=== PATIENT | male | born 1945 | race Caucasian/White ===

== ENCOUNTER 2018-10-06 08:42 | Day surgery (SDC) | payer BC ==
[~2018-10-06] VITALS: Ht 172.7 cm; Wt 72.0 kg
[2018-10-06] VITALS (15 sets, daily range): BP systolic 122–158; BP diastolic 60–79; PULSE 64–95; RESP 15–23; Ht 172.7 cm; Wt 72.0 kg
[~2018-10-06 08:42] MED LIST: CEFAZOLIN 2 GM/50 ML (PMX) 50 ML (FOR WT < 120 KG) IVPB ONE; LACTATED RINGER'S 1,000 ML IV SCH; SOD CHLORIDE 0.9% 1,000 ML IV SCH; metroNIDAZOLE 500 MG/NS (PMX) 100 ML IVPB ONE
[2018-10-06] MEDS ORDERED: FINA5TAB4 PO (09:06)
[2018-10-06] MEDS ORDERED: ALPR1TAB2 PO (09:06)
[2018-10-06] MEDS ORDERED: AMLO5TAB4 PO (09:06)
[2018-10-06] MEDS ORDERED: OXYC-279 PO (09:06)
[2018-10-06] MEDS ORDERED: TAMS-14 PO (09:09)
[2018-10-06] MEDS ORDERED: LIDOCAINE 1% (MPF) 30 ML INJ ONE (10:17)
--- NOTE | 2018-10-06 10:57 | PREAC ---
Date/Time of Note Date/Time of Note DATE: 10/06/18 TIME: 10:56 Anesthesia Eval and Record Evaluation Time Pre-Procedure Interview DATE: 10/06/18 TIME: 10:56 Age 72 Sex male NPO: 8 hrs Preoperative diagnosis anal mass Planned procedure proctoscopy with biopsy Past Medical History Past Medical History: Includes Cardio: HTN Surgery & Anesthesia Issues No known issue Meds Anticoagulation: No Beta Milvia within 24 hr: No Reason Beta Milvia not given: Pt. not on B-Milvia Reported Medications Tamsulosin Hcl* (Flomax*) 0.4 Mg Cap.er.24h, 0.4 MG PO DAILY, CAP 10/06/18 Alprazolam* (Xanax*) 1 Mg Tab, 1 MG PO HS PRN for ANXIETY, TAB 10/06/18 Oxycodone HCl/Acetaminophen (Percocet 5-325 mg Tablet) 1 Each Tablet, 1 TAB PO Q6 PRN for PAIN LEVEL 7-10, TAB 10/06/18 Amlodipine Besylate* (Norvasc*) 5 Mg Tablet, 5 MG PO DAILY, TAB 10/06/18 Discontinued Reported Medications Finasteride* (Finasteride*) 5 Mg Tablet, 5 MG PO DAILY, TAB 10/06/18 Current Medications Lactated Ringer's 1,000 ml @ 25 mls/hr Q24H IV ; Start 10/06/18 at 08:00 Sodium Chloride 1,000 ml @ 25 mls/hr Q24H IV ; Start 10/06/18 at 08:00 Meds reviewed: Yes Allergies Coded Allergies: No Known Drug Allergies (Unverified Allergy, Unknown, 10/05/18) Allergies Reviewed: Yes Labs/Studies Labs Reviewed: Reviewed by anesthesiologist test: N/A Pre-procedure Exam Last vitals Vital Signs Date Temp Pulse Resp B/P (MAP) Pulse Ox O2 O2 Flow FiO2 Time Delivery Rate 10/06/18 97.8 68 18 144/70 96 Room Air 09:49 (94) Airway: Adequate mouth opening, Adequate thyromental dist Mallampati: Mallampati I Teeth: Abnormal (none ) Lung: Normal Heart: Normal ASA Physical Status ASA physical status: 2 Emergency: None Pre-operative Attestations Prior to commencing anesthesia and surgery, the patient was re-evaluated, there was verification of: *The patient's identity *The results of appropriate recent lab work and preoperative vital signs *The above evaluation not changing prior to induction *Anesthetic plan, risk benefits, alternative and complications discussed with patient/family; questions answered; patient/family understands, accepts and wishes to proceed. GIULIA BLACKBURN DO Oct 06, 2018 10:57
[2018-10-06] MEDS ORDERED: MIDAZOLAM 1 MG/ML 2 ML INJ ONE (10:59)
[2018-10-06] MEDS ORDERED: FENTAnyl 50 MCG/ML VIAL ONE (10:59)
[2018-10-06] MEDS ORDERED: PROPOFOL 20 ML ONE (10:59)
[2018-10-06] MEDS ORDERED: LIDOCAINE 1% (MDV) 20 ML INJ ONE (10:59)
--- NOTE | 2018-10-06 11:03 | HPN ---
Date/Time of Note Date/Time of Note DATE: 10/06/18 TIME: 11:03 Interval H&P Admission Note Pt. seen H&P reviewed: No system changes LIZBETH WATSON M.D. Oct 06, 2018 11:03
[2018-10-06] MEDS ORDERED: CEFAZOLIN 1 GM INJ ONE (11:12)
[2018-10-06] MEDS ORDERED: BUPIVACAINE 0.5%/EPI (SDV) 30 ML INJ ONE (11:16)
--- NOTE | 2018-10-06 11:53 | PDOCDIS ---
Discharge Instructions CONDITION [id number] Patient Condition: [id number] Good HOME CARE INSTRUCTIONS: [id number] Diet Instructions: [id number] Regular ACTIVITY: [id number] Activity Restrictions: Aflsv5r No Restrictions [id number] Bathing Restrictions: Ojiax5n Shower FOLLOW UP/APPOINTMENTS Follow-up Plan With me in one week LIZBETH WATSON M.D. Oct 06, 2018 11:53
--- NOTE | 2018-10-06 11:56 | SIPON ---
Date/Time of Note Date/Time of Note DATE: 10/06/18 TIME: 11:55 Operative Report Preoperative Diagnosis perianal mass, fistula Postoperative Diagnosis Same Operation/Procedure Performed Exam under anesthesia, proctosigmoidoscopy, biopsies, placement of seton Surgeon see signature line stores assistant Anesthesia: general (LMA) Estimated blood loss: minimal Transfusion Required none Specimen Multiple specimens from mass Grafts/Implants none Complications none LIZBETH WATSON M.D. Oct 06, 2018 11:56
--- NOTE | 2018-10-06 12:31 | PAC ---
Date/Time of Note Date/Time of Note DATE: 10/06/18 TIME: 12:30 Post-Anesthesia Notes Post-Anesthesia Note Last documented vital signs Vital Signs Date Temp Pulse Resp B/P (MAP) Pulse Ox O2 O2 Flow FiO2 Time Delivery Rate 10/06/18 98 73 18 125/75 96 Room Air 1230 Activity: WNL Respiratory function: WNL Cardiovascular function: WNL Mental status: Baseline Pain reasonably controlled: Yes Hydration appropriate: Yes Nausea/Vomiting absent: Yes GIULIA BLACKBURN DO Oct 06, 2018 12:31
--- NOTE | 2018-10-09 07:53 | OPR ---
DATE OF OPERATION: OPERATION PERFORMED: Proctosigmoidoscopy exam under anesthesia, multiple biopsies and placement of seton. PREOPERATIVE DIAGNOSIS: Perianal mass. POSTOPERATIVE DIAGNOSIS: Perianal mass, fistula. SURGEON: Peewee Astorga M.D. ANESTHESIA: General with LMA. POSITION: Lithotomy. ESTIMATED BLOOD LOSS: Minimal. OPERATIVE FINDINGS AT SURGERY: Large granulating mass in the left posterior perianal skin. There is fistula to the posterior midline anal canal. 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 The patient developed a large mass. The patient reports discomfort with it. MRI reveals a large heterogeneous mass with fistula. Prior biopsy was benign. I saw the patient in the office and wanted to get more tissue plus examine it for fistulous tracts so I could drain it properly. I discussed the risks and benefits of a proctosigmoidoscopy, exam under anesthesia, multiple biopsies, placement of seton. I warned the patient the risks including bleeding, infection, damage to surrounding structures, fecal incontinence. The patient was agreeable and was cleared medically and we went to the OR. OPERATIVE PROCEDURE: After obtaining consent, the patient was brought to the operating room. After induction of general anesthesia, patient was gently placed in lithotomy position. I began with a digital rectal exam, which was significant for a rather benign anal canal, but the left posterior perianal skin there was a large granulating mass hard to the feel and mobile. I then placed a lubricated rigid sigmoidoscope into the patient's anal canal, navigated approximately 12 cm from the anal verge. The rectal mucosa was normal. The scope was removed and the patient was prepped and draped in usual sterile fashion. I began doing a perianal block using 1 percent lidocaine and 0.5 percent Marcaine with epi. Then using a knife and forceps, I took multiple biopsies from different regions of the mass. Hemostasis was achieved with electrocautery. Then through what appeared to be a fistulous opening, I passed a fistula probe easily into the posterior midline anal canal. Through this, I placed a silastic vessel loop and tied it off with 3 interrupted 0 Vicryl sutures tacked as a seton. I reexamined the anal canal and the mass, there was no other pathology. I injected more local anesthetic, procedure was terminated. The patient tolerated the procedure well. The patient was extubated in the OR and transported to PACU in good condition. I will call patient and family once the biopsy results are back and will discuss management. Dictated By: Peewee Astorga MD /[email or web address] /Document#: [id number] ; Dr. Sigrid HERNANDEZ
== END 2018-10-06 14:12 | disposition home or self-care (01) ==
LOC: SDS 08:42
PROVIDERS: ATTEND Surgery
DX: C44.500 Unspecified malignant neoplasm of anal skin (principal); I10 Essential (primary) hypertension
CPT/HCPCS: 45305; 46020; 46270; 71045; 86703; 86803; 88307; J0690; J2250; J3010; Z7512; Z7610; 88341; 88342